=== PATIENT | female | born 1985 | race Caucasian/White ===

== ENCOUNTER 2021-11-29 11:18 | Emergency (ER) | payer OTHER ==
[~2021-11-29] VITALS: Ht 154.9 cm; Wt 90.7 kg
[~2021-11-29 11:18] MED LIST: ACET325; AMOCLA875 PO; CEPH500 PO; CYCL10 PO; HYDACE5 PO; IBU800 MG PO; IBUP800; LOPE2C PO; MULVITMINE; NAPR500 PO; NITR100CA PO; OXYACE5T PO; PENVK500 PO; PROACE100 PO; PROM25 PO; Percocet 5-3251 EACH PO; RXCEPH500 PO; RXHYDACE PO; RXOXYACE PO; SULTRIDS PO; SULTRISS PO
[2021-11-29] MEDS ORDERED: DIPH25 PO (14:14)
[2021-11-29] MEDS ORDERED: PRED20 PO (14:14)
[2021-11-29] MEDS ORDERED: FAMO20 PO (14:14)
== END 2021-11-29 15:37 | disposition home or self-care (01) ==
LOC: ER 11:18
DX: T78.2XXA Anaphylactic shock, unspecified, initial encounter (principal); T78.3XXA Angioneurotic edema, initial encounter; F10.11 Alcohol abuse, in remission; Z72.0 Tobacco use; Y92.59 Other trade areas as the place of occurrence of the external cause
CPT/HCPCS: 71046; 94644; 94664; A9270; J0171; J1200; J2930

== ENCOUNTER 2022-06-03 18:30 | Emergency (ER) | payer OTHER ==
[~2022-06-03] VITALS: Ht 154.9 cm; Wt 77.1 kg
[~2022-06-03 18:30] MED LIST changes: +DIPH25 PO; +FAMO20 PO; +NARCAN4 M1; +PRED20 PO
[2022-06-03 20:11] LABS: BASOPHILS ABSOLUTE AUTO 0.03 K/mm3 (0.00-0.23); BASOPHILS PERCENT AUTO 1 % (0-2); EOSINOPHILS ABSOLUTE AUTO 0.46 K/mm3 (0.00-0.68); EOSINOPHILS PERCENT AUTO 9 % (0-6); Hematocrit 41.7 % (33.0-51.0); Hemoglobin 13.8 g/dL (11.5-16.0); IMMATURE GRAN ABSOLUTE AUTO 0.01 K/mm3 (0.00-0.10); IMMATURE GRAN PERCENT AUTO 0 % (0-1); LYMPHOCYTES ABSOLUTE AUTO 1.24 K/mm3 (0.84-5.20); LYMPHOCYTES PERCENT AUTO 24 % (21-46); MONOCYTES ABSOLUTE AUTO 0.33 K/mm3 (0.16-1.47); MONOCYTES PERCENT AUTO 6 % (4-13); Mean Corpuscular HGB 28.9 pg (26.0-34.0); Mean Corpuscular HGB Conc 33.1 g/dL (31.5-36.5); Mean Corpuscular Volume 87 fL (80-100); Mean Platelet Volume 11.2 fL (9.1-12.4); NEUTROPHILS ABSOLUTE AUTO 3.11 K/mm3 (1.96-9.15); NEUTROPHILS PERCENT AUTO 60 % (41-73); Platelet Count 210 K/mm3 (150-400); RDW Coefficient Variation 12.7 % (11.7-14.2); RDW Standard Deviation 40.2 fL (35.1-46.3); Red Blood Cell Count 4.77 M/mm3 (3.80-5.20); White Blood Cell Count 5.18 K/mm3 (4.00-11.30)
[2022-06-03 20:26] LABS: Albumin, Blood 3.2 g/dL (3.4-5.0); Bilirubin, Total 0.6 mg/dL (0.1-1.0); Calcium, Blood 8.5 mg/dL (8.5-10.1); Creatinine, Blood 0.73 mg/dL (0.40-1.00); Globulin, Blood 3.2 g/dL (2.2-4.0); Potassium, Blood 4.2 mmol/L (3.5-5.5); Total Protein, Blood 6.4 g/dL (6.4-8.2)
== END 2022-06-03 21:52 | disposition home or self-care (01) ==
LOC: ER 18:30
PROVIDERS: Physician Assistant
DX: R60.0 Localized edema (principal); M79.642 Pain in left hand; M79.641 Pain in right hand; M79.672 Pain in left foot; M79.671 Pain in right foot; F17.200 Nicotine dependence, unspecified, uncomplicated; Z79.899 Other long term (current) drug therapy
CPT/HCPCS: 36415; 80053; 83880; 85025